=== PATIENT | female | born 1975 | race Hispanic/Latino ===

== ENCOUNTER 2025-01-14 16:29 | Emergency (ER) | payer OTHER ==
[2025-01-14] MEDS ORDERED: FAMOTIDINE 20 MG/2 ML VIAL IV ONE (18:03)
[2025-01-14] MEDS ORDERED: FENTANYL CITR 100 MCG/2 ML ONE (18:03)
[2025-01-14] MEDS ORDERED: NA CHLORIDE 0.9% 1,000 ML ONE (18:03)
[2025-01-14] MEDS ORDERED: ONDANSETRON 4 MG/2 ML VIAL ONE (18:03)
[2025-01-14 18:23] LABS: Absolute Basophils 0.1 K/uL (0-0.5); Absolute Eosinophils 0.2 K/uL (0-0.5); Absolute Lymphocytes (CBC) 3.9 K/uL (0.7-4.9); Absolute Monocytes 0.6 K/uL (0.1-1.3); Absolute Neutrophil 4.3 K/uL (1.8-8.0); Basophils % 0.8 % (0-1.3); Eosinophils % 2.5 % (0-4.4); Hematocrit 40.3 % (36.0-45.0); Hemoglobin 13.8 g/dL (12.0-15.0); Lymphocytes % 42.8 % (15.3-44.8); MCHC 34.3 g/dL (32.0-36.0); MCV 87.5 fL (80-100); MPV 8.6 fL (7.6-11.3); Monocytes % 7.1 % (3.3-12.3); Neutrophils % 46.8 % (41.7-73.7); Platelets 288 thou/uL (152-406); RBC Red Blood Cell Count 4.61 M/uL (3.86-4.86); Red Cell Distribution Width 13.4 % (12.1-15.2)
[2025-01-14 18:43] LABS: Albumin 4.1 g/dL (3.4-5.0); Albumin/Globulin Ratio 1.1 (1.1-1.8); Anion Gap 8.7 mEq/L (5.0-15.0); Bilirubin Total 0.7 mg/dL (0.2-1.0); Globulin 3.7 g/dL (2.3-3.5); Potassium 3.7 mEq/L (3.5-5.1); Protein, Total 7.8 g/dL (6.4-8.2); Troponin High Sensitivity 4.3 pg/mL (<58.9)
--- NOTE | 2025-01-14 19:08 | RAD REPORT ---
EXAMINATION: TWO VIEW CHEST XR CLINICAL INDICATION: Female, 49 years old. Bed Name: [facility] TECHNIQUE: 2 view radiographs of the chest were performed. COMPARISON: No prior exam. FINDINGS: The lungs are well inflated and clear. No pneumothorax or sizable effusion. The heart is normal in si ze. Mediastinal contours are unremarkable. IMPRESSION: No acute or significant abnormalities. Electronically signed by: Luís Lozano MD 01/14/2025 06:09 PM CDT RP Due to temporary technical issues with the [employer] reporting system, reports are being case d by the in-house radiologist without review as a courtesy to ensure prompt reporting the interpreting radiologist is fully responsible for the content of the report Transcribed Date/Time: 01/14/2025 7:08 PM
--- NOTE | 2025-01-14 19:40 | RAD REPORT ---
EXAM: CT Chest For Pe Angio TECHNIQUE: CT angiogram of the chest was performed following intravenous contrast administration, inc luding sagittal and coronal as well as maximum intensity projection reformats. One or more of the following dose reduction techniques were used: Automated exposure control, adjustment of the mA and k V according to patient size, and iterative reconstruction. Unless otherwise specified, incidental findings do not require dedicated imaging follow-up. INDICATION: [facility] MAIN ABDOMINAL DISTENTION COMPARISON: Chest radiograph of earlier the same day. FINDINGS: LINES/TUBES: None. PULMONARY ARTERIES: Main pulmonary arteries are normal in caliber. No filling defects within the pul monary arteries to suggest pulmonary embolus. LUNGS AND AIRWAYS: The lungs and central airways are normal without focal abnormality. PLEURA: No effusion or pneumothorax. HEART AND MEDIASTINUM: The visualized thyroid gland is normal. No mediastinal, hilar, or axillary lym phadenopathy. Heart is unremarkable. No pericardial effusion. SOFT TISSUES AND BONES: No acute osseous abnormality. No significant soft tissue finding. UPPER ABDOMEN: Partially imaged gallstones near the fundus. IMPRESSION: No evidence of acute central pulmonary emboli. No suspicious intrathoracic findings..
--- NOTE | 2025-01-14 19:43 | RAD REPORT ---
EXAMINATION: CT Abdomen Pelvis W Contrast CLINICAL INDICATION: Female, 49 years old. ABD PAIN TECHNIQUE: CT abdomen and pelvis was performed, after the administration of IV contrast, as per [facility] protocol. Axial, sagittal and coronal reconstructions were obtained. One or more of the following dose reduction techniques were used: Automated exposure control, adjustment of the mA and k V according to patient size, and iterative reconstruction. Unless otherwise specified, incidental findings do not require dedicated imaging follow-up. COMPARISON: No prior exam. FINDINGS: LOWER CHEST: The visualized lung bases are clear. LIVER: Normal in size and contour. No focal lesion. BILIARY SYSTEM: 1.5 cm gallstone near the fundus. No other suspicious abnormalities. SPLEEN: Normal size. No focal lesion. PANCREAS: No mass, ductal dilation, or vida-pancreatic fluid. ADRENALS: Small left adrenal enhancing 1.3 cm nodule. KIDNEYS: Normal size and contour. No hydronephrosis. URINARY BLADDER: Unremarkable. GASTROINTESTINAL TRACT: No evidence of free air, significant intra-abdominal free fluid, bowel obstru ction or abscess. APPENDIX: Normal appendix. LYMPH NODES: No lymphadenopathy. MUSCULOSKELETAL: No acute or suspicious osseous abnormality. ADDITIONAL FINDINGS: None. IMPRESSION: Cholelithiasis. Incidentally noted left adrenal 1.3 cm nodule, not well characterized. This can be further evaluated on dedicated adrenal protocol CT or MRI exam. No other acute or concerning abnormalities seen in the abdomen or pelvis.
[2025-01-14 20:45] LABS: Sqamous Epithelial <5 /HPF (None Seen); Urine Bacteria None Seen /HPF (<20); Urine Bilirubin NEGATIVE (Negative); Urine Blood Trace (Negative); Urine Clarity Clear (Clear); Urine Color Colorless (Yellow); Urine Culture Reflex Order NOT NEEDED; Urine Glucose NEGATIVE (Negative); Urine Ketones NEGATIVE (Negative); Urine Microscopic Reflex YN ORDER UMIC; Urine Nitrite NEGATIVE (Negative); Urine Protein NEGATIVE (Negative); Urine RBC <5 /HPF (None Seen); Urine Urobilinogen Normal (Normal); Urine WBC <5 /HPF (<5); Urine pH 6.5 (5.0-7.0)
[2025-01-14 20:46] LABS: Specific Gravity > 1.030 (1.005-1.030)
--- NOTE | 2025-01-14 20:58 | EDPHYS ---
Physician Documentation [facility] Name: Bridget Jimenez Age: 49 yrs Sex: Female : 1975 Arrival Date: 01/14/2025 Time: 16:29 Bed 4 Private MD: Florian Moraes HPI: 01/14 17:46 This 49 yrs old Female presents to ER via Ambulatory with complaints of under john breast pain. 17:46 The patient or guardian reports chest pain that is located primarily in the anterior john chest wall, left. Onset: 7 day(s) ago. The patient presents with abdominal pain in the left upper quadrant. Onset: The symptoms/episode began/occurred 7 day(s) ago. The pain does not radiate. Associated signs and symptoms: Pertinent positives: nausea. The symptoms are described as constant, crampy. Modifying factors: The symptoms are alleviated by nothing, the symptoms are aggravated by pressure. The chest pain is described as PAIN LEFT UPPER QUADRANT. Modifying factors: The symptoms are alleviated by remaining still, the symptoms are aggravated by deep breath, movement, palpation of area, twisting torso. Severity of pain: At its worst the pain was moderate in the emergency department the pain is unchanged. 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 - Infectious Disease History:: Denies. - Social history:: Smoking status: Patient denies any tobacco usage or history of. - Family history:: not pertinent. ROS: 17:46 Constitutional: Negative for fever, chills, and weight loss, Eyes: Negative for injury, john pain, redness, and discharge, ENT: Negative for injury, pain, and discharge, Neck: Negative for injury, pain, and swelling, Cardiovascular: Negative for chest pain, palpitations, and edema, Respiratory: Negative for shortness of breath, cough, wheezing, and pleuritic chest pain, Back: Negative for injury and pain, : Negative for injury, bleeding, discharge, and swelling, MS/Extremity: Negative for injury and deformity, Skin: Negative for injury, rash, and discoloration, Neuro: Negative for headache, weakness, numbness, tingling, and seizure, Psych: Negative for depression, anxiety, suicide ideation, homicidal ideation, and hallucinations, Allergy/Immunology: Negative for hives, rash, and allergies, Endocrine: Negative for neck swelling, polydipsia, polyuria, polyphagia, and marked weight changes, Hematologic/Lymphatic: Negative for swollen nodes, abnormal bleeding, and unusual bruising, 17:46 Abdomen/GI: Positive for abdominal pain, of the left upper quadrant, Exam: 17:48 Constitutional: This is a well developed, well nourished patient who is awake, alert, john and in no acute distress. Head/Face: Normocephalic, atraumatic. Eyes: Pupils equal round and reactive to light, extra-ocular motions intact. Lids and lashes normal. Conjunctiva and sclera are non-icteric and not injected. Cornea within normal limits. Periorbital areas with no swelling, redness, or edema. ENT: Nares patent. No nasal discharge, no septal abnormalities noted. Tympanic membranes are normal and external auditory canals are clear. Oropharynx with no redness, swelling, or masses, exudates, or evidence of obstruction, uvula midline. Mucous membranes moist. Neck: Trachea midline, no thyromegaly or masses palpated, and no cervical lymphadenopathy. Supple, full range of motion without nuchal rigidity, or vertebral point tenderness. No Meningismus. Chest/axilla: Normal chest wall appearance and motion. Nontender with no deformity. No lesions are appreciated. Cardiovascular: Regular rate and rhythm with a normal S1 and S2. No gallops, murmurs, or rubs. Normal PMI, no JVD. No pulse deficits. Respiratory: Lungs have equal breath sounds bilaterally, clear to auscultation and percussion. No rales, rhonchi or wheezes noted. No increased work of breathing, no retractions or nasal flaring. Back: No spinal tenderness. No costovertebral tenderness. Full range of motion. Skin: Warm, dry with normal turgor. Normal color with no rashes, no lesions, and no evidence of cellulitis. MS/ Extremity: Pulses equal, no cyanosis. Neurovascular intact. Full, normal range of motion., bilateral aka Neuro: Awake and alert, GCS 15, oriented to person, place, time, and situation. Cranial nerves II-XII grossly intact. Motor strength 5/5 in all extremities. Sensory grossly intact. Cerebellar exam normal. Normal gait. Psych: Awake, alert, with orientation to person, place and time. Behavior, mood, and affect are within normal limits. 17:48 Abdomen/GI: Inspection: abdomen appears normal, Bowel sounds: normal, Palpation: mild abdominal tenderness, moderate abdominal tenderness, in the left upper quadrant, Liver: no appreciated palpable abnormalities, Hernia: not appreciated, 18:25 ECG was reviewed by the Attending Physician. [facility] Vital Signs: 17:40 BP 138 / 74; Pulse 74; Resp 17; Temp 97; Pulse Ox 100% ; Weight 74.84 kg; Height 5 ft. jl7 3 in. ; Pain 5/10; 18:34 BP 107 / 73; Pulse 76; Resp 18; Pulse Ox 98% on R/A; ph 20:00 BP 102 / 60; Pulse 76; Resp 16; Pulse Ox 100% ; al5 20:57 BP 121 / 60; Pulse 72; Resp 16; Pulse Ox 100% on R/A; al5 17:40 Body Mass Index 29.23 (74.84 kg, 160.02 cm) 7 17:40 Pain Scale: Adult jl7 MDM: 17:04 Medical Screening Exam initiated [facility] 17:49 Differential diagnosis: abnormal EKG, acute myocardial infarction, chest wall pain, john Cholelithiasis costochondritis, esophagitis, hiatal hernia, mitral valve prolapse, pancreatitis, peptic ulcer disease, pericarditis, pneumothorax, pulmonary embolus, stable angina, thoracic aortic disection, unstable angina, bowel obstruction, gastritis, Menorrhagia, Mesenteric ischemia or infarction, non-specific abd pain, pancreatitis, Ureterolithiasis, urinary tract infection. HEART Score: History: Slightly Suspicious (0), ECG: Normal (0), Age: > 45 and < 65 years (1), Risk Factors: 1 or 2 risk factors (1), [DM] [Obesity] Troponin: < or = 1 x Normal Limit (0). The patient was not given aspirin in the Emergency Department. Not indicated due to patient's past medical history. GUILLE Risk Score: TOTAL SCORE = 0. Data reviewed: vital signs, nurses notes, lab test result(s), EKG, radiologic studies, CT scan, plain films. Consideration of Admission/Observation Escalation of care including admission/observation considered. I considered the following discharge prescriptions or medication management in the emergency department Medications were administered in the Emergency Department. See MAR. Independent interpretation of the following test(s) in the Emergency Department EKG: See my EKG interpretation above CT Scan: My interpretation is CT C/A/P. Test considered but Not performed: Ultrasound NO ABD USG. Counseling: I had a detailed discussion with the patient and/or guardian regarding the historical points, exam findings, and any diagnostic results supporting the discharge/admit diagnosis, lab results, radiology results, the need for outpatient follow up, for definitive care, a family practitioner. 20:22 Special discussion: I discussed with the patient the need to follow-up with the sb4 PCP/specialist for the noted incidental finding on X-ray/CT scanning. 01/14 17:05 Order name: CBC with Diff; Complete Time: 18:33 [facility] 01/14 17:05 Order name: CMP; Complete Time: 18:45 [facility] 01/14 17:05 Order name: Troponin High Sensitivity; Complete Time: 18:45 [facility] 01/14 17:45 Order name: Lipase; Complete Time: 18:35 [facility] 01/14 18:16 Order name: UA Rfx Juan Carlos Cult if indicated; Complete Time: 20:47 [facility] 01/14 17:05 Order name: Chest Pa And Lat (2 Views) XRAY [facility] 01/14 17:45 Order name: CT Chest For PE Angio; Complete Time: 19:47 [facility] 01/14 17:45 Order name: CT Abd/Pelvis - IV Contrast Only; Complete Time: 19:47 [facility] 01/14 17:05 Order name: EKG - Nurse/Tech; Complete Time: 18:36 [facility] EC:25 Rate is 72 beats/min. Rhythm is regular. QRS [place] is Normal. [place] interval is normal. QRS john interval is normal. QT interval is normal. No Q waves. T waves are Normal. No ST changes noted. Clinical impression: NSR w/ Non-specific ST/T Changes and No evidence of ischemia. Interpreted by me. Reviewed by me. Administered Medications: 18:17 Drug: NS 0.9% IV 1000 ml IV at 1000 ml once; to be given as a bolus over 60 minutes ph Route: IV; Rate: 1000 ml; Site: left antecubital; 19:59 Follow up: Response: No adverse reaction; IV Status: Completed infusion; IV Intake: al5 1000ml 18:17 Drug: Famotidine IVP 20 mg IVP once; dilute with 10 mL 0.9% NaCl; give over 2 minutes ph Route: IVP; Site: left antecubital; 18:35 Follow up: Response: No adverse reaction ph 18:17 Drug: fentaNYL (PF) IVP 50 mcg IVP once Route: IVP; Site: left antecubital; ph 18:35 Follow up: Response: No adverse reaction ph 18:17 Drug: Ondansetron IVP 4 mg IVP once; over 2 minutes Route: IVP; Site: left antecubital; ph 18:35 Follow up: Response: No adverse reaction ph Disposition: 01/15 16:28 Co-signature as Attending Physician, Florian Troy MD I agree with the assessment and [facility] plan of care. Disposition Summary: 01/14/25 20:57 Discharge Ordered Notes: Location: Home sb4 Problem: new sb4 Symptoms: have improved sb4 Condition: Stable sb4 Diagnosis - Epigastric abdominal tenderness sb4 Followup: john - With: Private Physician - When: 2 - 3 days - Reason: Recheck today's complaints, Continuance of care, Re-evaluation by your physician Followup: john - With: Carson Parker MD - When: 2 - 3 days - Reason: Recheck today's complaints, Re-evaluation by your physician Discharge Instructions: - Discharge Summary Sheet john - Abdominal Pain, Adult john - Abdominal Pain, Adult, [id number] [facility] Forms: - Patient Portal Instructions sb4 - Leadership Thank You Letter sb4 Prescriptions: - Pepcid 20 mg Oral Tablet - take 1 tablet ORAL route every 12 hours for 10 days; 20 tablet; Refills: 0, john Product Selection Permitted - Protonix 40 mg Oral Tablet - take 1 tablet ORAL route once daily; 30 tablet; Refills: 0, Product Selection john Permitted - dicyclomine 20 mg Oral tablet - take 1 tablet ORAL route 4 times per day; 28 tablet; Refills: 0, Product john Selection Permitted Signatures: Dispatcher [employer] Florian Mireles MD MD cha Hall, Patricia, RN RN ph Leal, Jahala, RN RN Ana Duarte PA-C PA-C sb4 Marie Rojas RN al5 Corrections: (The following items were deleted from the chart) 01/14 17: 17:06 CBC+H.LAB.BRZ ordered. EDMS EDMS 17: 17:06 COMPREHENSIVE METABOLIC PANEL+C.LAB.BRZ ordered. EDMS EDMS 17: 17:06 Troponin High Sensitivity+C.LAB.BRZ ordered. EDMS EDMS 17: 17:06 Chest Pa And Lat (2 Views)+RAD.RAD.BRZ ordered. EDMS EDMS
--- NOTE | 2025-01-14 20:58 | ER ---
Nurse's Notes [facility] Name: Bridget Jimenez Age: 49 yrs Sex: Female : 1975 Arrival Date: 01/14/2025 Time: 16:29 Bed 4 Private MD: Diagnosis: Epigastric abdominal tenderness Presentation: 01/14 17:40 Chief complaint: Patient states: LUQ to LLQ abdominal pain x 1 week, nausea, denies jl7 vomiting/diarrhea, PCP prescribed Cipro and Flagyl yesterday. Coronavirus screen: At this time, the client does not indicate any symptoms associated with coronavirus-19. Ebola Screen: No symptoms or risks identified at this time. Initial Sepsis Screen: Does the patient meet any 2 criteria? No. Patient's initial sepsis screen is negative. Does the patient have a suspected source of infection? No. Patient's initial sepsis screen is negative. Risk Assessment: Do you want to hurt yourself or someone else? Patient reports no desire to harm self or others. Onset of symptoms was January 07, 2025. 17:40 Method Of Arrival: Ambulatory jl7 17:40 Acuity: MACK 3 jl7 Triage Assessment: 17:42 General: Appears in no apparent distress. uncomfortable, Behavior is calm, cooperative, jl7 appropriate for age. Pain: Complains of pain in left upper quadrant and left lower quadrant Pain currently is 5 out of 10 on a pain scale. 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 - Infectious Disease History:: Denies. - Social history:: Smoking status: Patient denies any tobacco usage or history of. - Family history:: not pertinent. Screenin:52 [facility] ED Fall Risk Assessment (Adult) History of falling in the last 3 months, ph including since admission No falls in past 3 months (0 pts) Confusion or Disorientation No (0 pts) Intoxicated or Sedated No (0 pts) Impaired Gait No (0 pts) Mobility Assist Device Used No (0 pt) Altered Elimination No (0 pt) Score/Fall Risk Level 0 - 2 = Low Risk Oriented to surroundings, Maintained a safe environment, Hourly rounding (assess needs \T\ fall precautionary measures) done. Abuse screen: Denies threats or abuse. Denies injuries from another. Nutritional screening: No deficits noted. Tuberculosis screening: No symptoms or risk factors identified. Assessment: 18:33 General: Appears in no apparent distress. comfortable, well groomed, Behavior is calm, ph cooperative, appropriate for age. Pain: Complains of pain in left upper quadrant and left lower quadrant. Neuro: Level of Consciousness is awake, alert, obeys commands, Oriented to person, place, time, situation. Cardiovascular: Capillary refill < 3 seconds in bilateral fingers Patient's skin is warm and dry. Respiratory: Airway is patent Respiratory effort is even, unlabored. GI: Abdomen is non-distended, Reports lower abdominal pain, upper abdominal pain, nausea. Derm: Skin is healthy with good turgor, Skin is pink, warm \T\ dry. Musculoskeletal: Circulation, motion, and sensation intact. Range of motion: intact in all extremities. 19:58 General: Appears in no apparent distress. comfortable, Behavior is calm, cooperative. al5 Pain: Denies pain. Neuro: Level of Consciousness is awake, alert, obeys commands, Oriented to person, place, time, situation. Cardiovascular: Capillary refill < 3 seconds Patient's skin is warm and dry. Respiratory: Airway is patent Respiratory effort is even, unlabored, Respiratory pattern is regular, symmetrical. GI: Abdomen is non-distended. : No deficits noted. Urine is clear. EENT: No signs and/or symptoms were reported regarding the EENT system. Derm: Skin is intact, is healthy with good turgor, Skin is pink, warm \T\ dry. normal. Musculoskeletal: No signs and/or symptoms reported regarding the musculoskeletal system. 20:47 Reassessment: Patient appears in no apparent distress at this time. No changes from al5 previously documented assessment. Patient and/or family updated on plan of care and expected duration. Pain level reassessed. Patient is alert, oriented x 3, equal unlabored respirations, skin warm/dry/pink. Vital Signs: 17:40 BP 138 / 74; Pulse 74; Resp 17; Temp 97; Pulse Ox 100% ; Weight 74.84 kg; Height 5 ft. jl7 3 in. ; Pain 5/10; 18:34 BP 107 / 73; Pulse 76; Resp 18; Pulse Ox 98% on R/A; ph 20:00 BP 102 / 60; Pulse 76; Resp 16; Pulse Ox 100% ; al5 20:57 BP 121 / 60; Pulse 72; Resp 16; Pulse Ox 100% on R/A; al5 17:40 Body Mass Index 29.23 (74.84 kg, 160.02 cm) jl7 17:40 Pain Scale: Adult [facility] ED Course: 16:33 Patient arrived in ED. im 17:04 Florian Troy MD is Attending Physician. [facility] [place] 17:42 Triage completed. jl7 17:42 Arm band placed on right wrist. jl7 17:52 Radiology exam delayed due to lab results not completed at this time. (BUN/Creatinine) jc4 IV insertion attempt and/or patient not having appropriate IV at this time. 17:52 Patient has correct armband on for positive identification. Bed in low position. Call light in reach. Side rails up X 1. Pulse ox on. NIBP on. 17:58 Chest Pa And Lat (2 Views) XRAY In Process Unspecified. EDMS 18:16 Ina Rudolph, RN is Primary Nurse. ph 18:17 Initial lab(s) drawn, by nj, sent to lab. Inserted saline lock: 22 gauge in left ph antecubital area, using aseptic technique. Blood collected. Flushed with 10 mL NS. 18:26 Ana Cadena PA-C is PHCP. sb4 18:35 EKG done, by ED staff, reviewed by Florian Troy MD. ph 19:15 CT Chest For PE Angio In Process Unspecified. EDMS 19:15 CT Abd/Pelvis - IV Contrast Only In Process Unspecified. EDMS 20:57 Carson Parker MD is Referral Physician. sb4 20:58 No provider procedures requiring assistance completed. al5 21:08 Provided Education on: discharge follow up, medications. al5 21:08 IV discontinued, intact, bleeding controlled, No redness/swelling at site. Pressure al5 dressing applied. Administered Medications: 18:17 Drug: NS 0.9% IV 1000 ml IV at 1000 ml once; to be given as a bolus over 60 minutes ph Route: IV; Rate: 1000 ml; Site: left antecubital; 19:59 Follow up: Response: No adverse reaction; IV Status: Completed infusion; IV Intake: al5 1000ml 18:17 Drug: Famotidine IVP 20 mg IVP once; dilute with 10 mL 0.9% NaCl; give over 2 minutes ph Route: IVP; Site: left antecubital; 18:35 Follow up: Response: No adverse reaction ph 18:17 Drug: fentaNYL (PF) IVP 50 mcg IVP once Route: IVP; Site: left antecubital; ph 18:35 Follow up: Response: No adverse reaction ph 18:17 Drug: Ondansetron IVP 4 mg IVP once; over 2 minutes Route: IVP; Site: left antecubital; ph 18:35 Follow up: Response: No adverse reaction ph Medication: 17:52 VIS not applicable for this client. ph Intake: 19:59 IV: 1000ml; Total: 1000ml. al5 Outcome: 20:57 Discharge ordered by . sb4 21:08 Discharged to home ambulatory, with significant other, al5 21:08 Condition: good 21:08 Discharge instructions given to patient, significant other, Instructed on discharge instructions, follow up and referral plans. medication usage, Demonstrated understanding of instructions, follow-up care, medications, Prescriptions given X 3, 21:09 Patient left the ED. al5 Signatures: Dispatcher [employer] EDFlorian Horn MD MD cha Hall, Patricia, RN RN Kaitlyn Merida RN RN Ana Duarte PA-Gio PA-C jack4 Natalie Meier Amanda, RN RN al5 Cruzito Butcher
[2025-01-14 21:31] VITALS: TEMP 97
[2025-01-14 21:33] VITALS: O2SAT 100
[2025-01-14 21:34] VITALS: BP 121/60
--- NOTE | 2025-01-18 16:53 | EKG ---
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
== END 2025-01-14 21:09 | disposition home or self-care (01) ==
LOC: ER 16:29
DX: R10.816 Epigastric abdominal tenderness (principal); R10.12 Left upper quadrant pain; R07.89 Other chest pain; E11.9 Type 2 diabetes mellitus without complications
CPT/HCPCS: 96361; 93005; 85025; 81001; 36415; 84484; 83690; 80053; 71275; 74177; 71046; 96375; 96374; 99284; Q9967; J3010; J2405; J7030